=== PATIENT | male | born 1955 | race Caucasian/White ===

== ENCOUNTER → 2016-09-09 | Outpatient (CLI) | payer OTHER ==
[~2016-09-09] MED LIST: AMLODIPINE BESYL5 MG PO; ASPIRINEC PO; CERTAGEN PO; DIABETA5 M1 PO; FENOFIBRATE150 MG PO; FISH OIL 1,2001 EAC4 PO; GLIPIZIDE2.5 MG/BO1 PO; ISOSORBIDE MONO30 MG PO; LIPITOR PO; LODINE400 MG PO; LORTAB 7.5-5001 TAB PO; METFORMIN PO; METOPROLOL TAR25 MG PO; NIACIN ER500 MG PO; PHENERGAN PO; PRAVASTATIN SOD40 MG PO; PRINIVIL5 MG PO; TOPROL XL PO
--- NOTE | ~2016-09-09 | ST ---
Unit #: [id number] #: [id number] Patient: NOLAN MURPHY [id number] [facility]. [address] [address] [id number] O MR#: [id number] NAME: NOLAN MURPHY : 1955 SEX: M STUDY DATE/TIME: 09/09/2016 UNIT: [facility] ROOM: STUDY DESCRIPTION: Stress test Attending Physician: Allison Gutiérrez M.D. Referring Physician: Allison Gutiérrez M.D. Primary Care Physician: Krish Drew Jr., M.D. CARDIOLOGY REPORT EXAM EKG portion of a walking Lexiscan Cardiolite stress test. REASON FOR EXAMINATION Chest pain. FINDINGS Baseline EKG shows normal sinus rhythm with a rate of 65 beats per minute. A total of 0.4 mg of Lexiscan was injected per protocol followed by Cardiolite. The patient's symptoms were positive nausea. The patient had to have the treadmill stopped and the patient was sat down. There were no ST-T wave changes or arrhythmias and test was stopped due to protocol completion. Nausea resolved in recovery. IMPRESSION 1. There were no ST-T wave changes. 2. The patient experienced nausea that resolved in recovery. 3. No arrhythmias. 4. Please correlate with Cardiolite imaging. Dictated by... Sophie Bryson A.P.R.N. for Allison Gutiérrez M.D. AM/sunshine TD: 09/09/2016 09:02 JOB #: [id number] CARDIOLOGY REPORT Page 1 of 1 X Sophie Bryson APRN CARDIOLOGY REPORT
--- NOTE | ~2016-09-09 | US37 ---
[facility] A Service of [facility] & [facility] RADIOLOGY TEXT RESULTS PATIENT: NOLAN MURPHY [id number] [birth year] UNIT #: [id number] AGE: [address]: Allison Gutiérrez MD SEX: M ORDER DR: [id number] [facility] [address] [place], [place] [address] [id number] O MR#: [id number] [facility] #: [id number] NAME: NOLAN MURPHY. : 1955 SEX: M STUDY DATE/TIME: 09/09/2016 7:09 UNIT: [facility] ROOM: STUDY DESCRIPTION: US Carotid W/Doppler Bilateral Attending Physician: Allison Gutiérrez M.D. Referring Physician: Allison Gutiérrez M.D. Ordering Physician: Allison Gutiérrez M.D. Primary Care Physician: Krish Drew Jr., M.D. MEDICAL IMAGING REPORT This report is preliminary unless electronic signature is present EXAM Bilateral carotid duplex 09/09/2016 CLINICAL HISTORY Headaches, dizziness x6 months. FINDINGS There is patent flow seen throughout the right common carotid, internal carotid, and external carotid arteries. There is mild, diffuse, homogeneous appearing plaque seen in the common carotid artery, extending into the internal and external carotid arteries. The right common carotid artery peak velocity is 69 cm/sec. The right internal carotid artery peak systolic/end-diastolic velocities are: proximal 56/13 cm/sec, mid 50/16 cm/sec, distal 58/27 cm/sec. The right external carotid artery peak velocity is 81 cm/sec, and vertebral artery 42 cm/sec. The right ICA:CCA ratio is 0.8. There is patent flow seen throughout the left common carotid, internal carotid, and external carotid arteries. There is diffuse, homogeneous, and irregular appearing plaque seen in the common carotid artery, extending to the carotid bifurcation, as well as the internal and external carotid arteries. The proximal aspect of the internal carotid artery appears heterogeneous and a little bit more irregular. The left common carotid artery peak velocity is 66 cm/sec. The left internal carotid artery peak systolic/end-diastolic velocities are: proximal 68/25 cm/sec, mid 74/28 cm/sec, distal 91/33 cm/sec. The left external carotid artery peak velocity is 86 cm/sec, vertebral artery 28 cm/sec. The left ICA:CCA ratio is 1.3. IMPRESSION 1. The right carotid artery has mild atherosclerosis that is not hemodynamically significant by duplex criteria (less than 50%). [facility] A Service of [facility] RADIOLOGY TEXT RESULTS PATIENT: NOLAN MURPHY [id number] [birth year] UNIT #: [id number] AGE: [address]: Allison Gutiérrez MD SEX: M ORDER DR: 2. The left carotid artery has mild atherosclerosis that is not hemodynamically significant by duplex criteria (less than 50%). 3. Vertebral flow is antegrade bilaterally. Dictated by... Bora Green M.D. THIS IS AN ELECTRONICALLY VERIFIED REPORT Bora Green M.D. at 09/10/2016 10:10 AM JOSE/nhung TD: 09/09/2016 08:59 JOB #: [id number] MEDICAL IMAGING REPORT Page 1 of 1 COPY
--- NOTE | ~2016-09-09 | TH ---
Unit #: [id number] #: [id number] [facility] [id number] [facility] [address] [place], [place] [address] [id number] O MR#: [id number] NAME: NOLAN MURPHY : 1955 SEX: M STUDY DATE/TIME: 09/09/2016 UNIT: [facility] ROOM: STUDY DESCRIPTION: Attending Physician: Allison Gutiérrez M.D. Referring Physician: Allison Gutiérrez M.D. Primary Care Physician: Krish Drew Jr., M.D. CARDIOLOGY REPORT EXAM Lexiscan Cardiolite stress test, nuclear portion. PROCEDURE Using technetium 99m labeled Cardiolite, rest and stress SPECT images were obtained. Multiple SPECT images were obtained in various views including horizontal and vertical long axis and short axis views of the left ventricle. Images were obtained by gated SPECT method. The patient was administered 11.13 mCi of Cardiolite at rest. The patient was administered 36 mCi of Cardiolite after Lexiscan infusion was completed. On the stress images, there is normal perfusion noted. The rest images show normal perfusion. Comparing rest and stress images, there is no stress-induced ischemia noted. The left ventricular ejection fraction is calculated to be 72%. There is no focal wall motion abnormality seen. CONCLUSION 1. No stress-induced ischemia noted. 2. The left ventricular ejection fraction is calculated to be 72%. 3. There is no focal wall motion abnormality seen. 4. Normal Lexiscan Cardiolite stress test. 5. Technically limited study due to patient's body habitus. Clinical correlation is requested. Dictated by... Don Swenson TD: 09/09/2016 12:33 JOB #: [id number] CARDIOLOGY REPORT Page 1 of 1 X Allison Gutiérrez MD <ELECTRONICALLY SIGNED> 10/23/16 1429 CARDIOLOGY REPORT
== END | disposition home or self-care (01) ==
LOC: CNUC 09-01 06:30
DX: R07.9 Chest pain, unspecified (principal); I65.23 Occlusion and stenosis of bilateral carotid arteries
CPT/HCPCS: 78452; 82947; 93017; 93880; A9500; J2785

== ENCOUNTER → 2016-09-17 | Outpatient (CLI) | payer OTHER ==
--- NOTE | ~2016-09-17 | CR58 ---
[facility]. [facility] A Service of [facility] & [facility] RADIOLOGY TEXT RESULTS PATIENT: NOLAN MURPHY LOCATION: [facility] : 51 UNIT #: [id number] AGE: [address]: Dawood Driver MD SEX: M ORDER DR: [id number] [place] [id number] O MR#: [id number] Acc #: [id number] NAME: NOLAN MURPHY : 1955 SEX: M STUDY DATE/TIME: 09/17/2016 10:48 UNIT: [facility] ROOM: STUDY DESCRIPTION: CR Cervical Spine 2 or 3 Views Attending Physician: Dawood Driver M.D. Referring Physician: Dawood Driver M.D. Ordering Physician: Dawood Driver M.D. Primary Care Physician: Dawood Driver M.D. MEDICAL IMAGING REPORT This report is preliminary unless electronic signature is present. EXAM Cervical spine series 09/17/2016 10:48 hours HISTORY 1-year history of neck pain and left shoulder pain. No known injury. COMPARISON None. FINDINGS AP, lateral, open-mouth and lateral swimmer's views are performed. C1-C7 are visualized. There is no prevertebral soft tissue swelling or malalignment. No vertebral body or disc height loss. No significant spurring. IMPRESSION Negative cervical spine series. Dictated by... Laurita Meléndez M.D. THIS IS AN ELECTRONICALLY VERIFIED REPORT Laurita Meléndez M.D. at 09/17/2016 4:01 PM Fransisca TD: 09/17/2016 13:46 JOB #: [id number] MEDICAL IMAGING REPORT Page 1 of 1
== END | disposition home or self-care (01) ==
LOC: SRAD 10:38
DX: M54.2 Cervicalgia (principal)
CPT/HCPCS: 72040

== ENCOUNTER → 2016-10-13 | Outpatient (CLI) | payer OTHER ==
--- NOTE | ~2016-10-13 | CT52 ---
[facility] A Service of [facility] RADIOLOGY TEXT RESULTS PATIENT: NOLAN MURPHY LOCATION: [facility] : 51 UNIT #: [id number] AGE: [address]: Dawood Driver MD SEX: M ORDER DR: [id number] [place] [id number] [facility] [place], [place] [address] [id number] O MR#: [id number] Acc #: [id number] NAME: NOLAN MURPHY. : 1955 SEX: M STUDY DATE/TIME: 10/13/2016 10:24 UNIT: [facility] ROOM: STUDY DESCRIPTION: CT Cervical Spine Wo Cont Attending Physician: Dawood Driver M.D. Referring Physician: Dawood Driver M.D. Ordering Physician: Dawood Driver M.D. Primary Care Physician: Dawood Driver M.D. MEDICAL IMAGING REPORT This report is preliminary unless electronic signature is present EXAM Cervical spine CT, no contrast. DATE 10/13/2016 CLINICAL HISTORY Left-side neck and shoulder pain radiating to left arm for one year. PROCEDURE Axial cervical spine CT without contrast with multiplanar reformats. This CT exam was performed with one or more of the following radiation dose reduction techniques: automatic exposure control, adjustment of mA and/or kV according to patient size, and iterative reconstruction. FINDINGS There is a mild dextroscoliosis. There is some left 3-4 facet arthropathy but no bone erosion or destruction or fracture is seen. The paraspinous soft tissues are unremarkable. At 2-3, the canal and right foramen are normal and uncovertebral degenerative change contributes to mild left foraminal narrowing. At 3-4, the canal is normal and the right carrillo is normal but there is moderate left foraminal narrowing. At 4-5, the canal and foramina are normal. At 5-6, 6-7, and 7-1, the canal and foramina are normal. IMPRESSION [facility] A Service of [facility] RADIOLOGY TEXT RESULTS PATIENT: NOLAN MURPHY LOCATION: [facility] : 51 UNIT #: [id number] AGE: [address]: Dawood Driver MD SEX: M ORDER DR: Modest degenerative change including dextroscoliosis. Overall, facet arthropathy on the left at C3-4 is the most prominent finding. No fracture or acute abnormality at any level. Dictated by... Bruce Corrigan M.D. THIS IS AN ELECTRONICALLY VERIFIED REPORT Bruce Corrigan M.D. at 10/14/2016 5:05 PM DAMARIS/jeramie TD: 10/13/2016 16:53 JOB #: [id number] MEDICAL IMAGING REPORT Page 1 of 1 COPY
== END | disposition home or self-care (01) ==
LOC: CCAT 09:58
DX: M54.2 Cervicalgia (principal); M47.892 Other spondylosis, cervical region; M46.82 Other specified inflammatory spondylopathies, cervical region; M41.9 Scoliosis, unspecified
CPT/HCPCS: 72125